=== PATIENT | male | born 1990 | race American Indian/Alaskan Native ===

== ENCOUNTER 2019-05-11 17:56 | Emergency (ER) | payer OTHER ==
[2019-05-11] MEDS ORDERED: BOOSTRIX IM ONE (18:04)
--- NOTE | 2019-05-11 18:04 | Event Note ---
ED Screening Note Date of service: 05/11/19 Time: 18:00 ED Screening Note: This is a 29 y.o. M. that presents to the ER with laceration to forehead. Patient was moving a refrigerator while helping mother move and a glass tray fell onto his head. Denies LOC or n/v. Tetanus not UTD. This initial assessment/diagnostic orders/clinical plan/treatment(s) is/are subject to change based on patients health status, clinical progression and re- assessment by fellow clinical providers in the ED. Further treatment and workup at subsequent clinical providers discretion. Patient/guardian urged not to elope from the ED as their condition may be serious if not clinically assessed and managed. Initial orders include: CT of facial bones [employer] <SAMINA JAIN - Last Filed: 05/11/19 18:00> ED Screening Note: A physician and/or other qualified medical personnel has recommended that the patient receive further examination and/or treatment beyond their Medical Screening Exam. The risks and benefits were explained. The patient was informed of their right to emergency care. Patient left before final disposition of their medical condition. This note has been generated by me, Dr. Braeden Marques III, MD, the [facility] or for the emergency department. I have not seen this patient personally. : <BRAEDEN MARQUES - Last Filed: 05/15/19 16:47>
[2019-05-11 18:05] VITALS: BP 119/74
--- NOTE | 2019-05-11 20:49 | Cat Scan Report ---
THE EXAM WAS ORDERED A CT FACIAL BONES BUT IS IN FACT A CT HEAD WITHOUT CONTRAST CT head without contrast INDICATION : laceration to forehead. TECHNIQUE: Axial imaging performed from the skull apex through the skull base without the use of con trast. All CT scans at this location are performed using CT dose reduction for ALARA by means of aut omated exposure control. COMPARISON: None FINDINGS: Parenchyma: No acute intracranial hemorrhage or parenchymal abnormality. Ventricles: Ventricles are normal in size and appear symmetric. Soft tissues: There is a laceration in the midline with a 7 mm radiopaque foreign body as seen on im age #28 of series #2. There is mild surrounding soft tissue swelling. No significant hematoma formati on or other soft tissue abnormality. The orbits are normal. Bones: No acute osseous abnormality. Sinuses: Sinuses and mastoid air cells are clear. IMPRESSION: 1. CT head examination instead of CT facial bones as described above. 2. Midline frontal scalp laceration with 7 mm retained foreign body and mild surrounding swelling. 3. No acute intracranial abnormality. Signer Name: Phil Dial MD Signed: 05/11/2019 7:02 PM Workstation Name: [id number]
== END 2019-05-12 09:13 | disposition left against medical advice (07) ==
LOC: ED 17:56
DX: S09.90XA Unspecified injury of head, initial encounter (principal); Z53.21 Procedure and treatment not carried out due to patient leaving prior to being seen by health care provider; X58.XXXA Exposure to other specified factors, initial encounter; Y93.89 Activity, other specified; Y92.89 Other specified places as the place of occurrence of the external cause; Y99.8 Other external cause status
CPT/HCPCS: 70450; 70486